=== PATIENT | male | born 1985 | race Caucasian/White ===

== ENCOUNTER 2021-06-27 11:25 | Emergency (ER) | payer OTHER ==
[~2021-06-27] VITALS: Ht 180.3 cm; Wt 90.9 kg
[2021-06-27 11:28] VITALS: BP 149/95
[2021-06-27] MEDS: TETanus/Pertussis (Acell)/Diphther VAC/PF (Tdap-Adult) 0.5ml syringe IMVAC ONE (15:22)
[2021-06-27] MEDS: acetaminophen 325mg tablet PO ONE (15:24)
[2021-06-27] MEDS: LIDOcaine 1% 30ml preserv. free vial IJ ONE (15:37)
[2021-06-27] MEDS: LIDOcaine 1% W/epiNEPHrine 1:200,000 10ml vial IJ ONE (15:39)
[2021-06-27] MEDS: LIDOcaine 1% w/epiNEPHrine 1:200,000 30ml vial IJ ONE (15:39)
[2021-06-27] MEDS ORDERED: ACET-2971 PO (15:55)
[2021-06-27] MEDS ORDERED: DOXY100C76 PO (15:55)
== END 2021-06-27 16:45 | disposition home or self-care (01) ==
LOC: ER 11:26
DX: L03.012 Cellulitis of left finger (principal); Z88.8 Allergy status to other drugs, medicaments and biological substances
CPT/HCPCS: 73140; 90471; 90715; 99283